=== PATIENT | male | born 1955 | race Caucasian/White ===

== ENCOUNTER 2018-01-18 07:01 | Day surgery (SDC) | payer OTHER ==
[~2018-01-18] VITALS: Ht 172.7 cm; Wt 57.1 kg
[2018-01-18 07:28] VITALS: BP 142/76
[2018-01-18 12:50] VITALS: BP 116/75
== END 2018-01-18 11:00 | disposition home or self-care (01) ==
LOC: GI 07:01 → OR 09:30 → GI 11:00
PROVIDERS: Internal Medicine Gastroenterology
PROC: 0DJD8ZZ Inspection of Lower Intestinal Tract, Via Natural or Artificial Opening Endoscopic (ICD-10-PCS; principal; 2018-01-18 08:30)
DX: Z12.11 Encounter for screening for malignant neoplasm of colon (principal); I10 Essential (primary) hypertension; K57.30 Diverticulosis of large intestine without perforation or abscess without bleeding
CPT/HCPCS: 45378; J1200; J1610; J2250; J2310; J3010; J3490